=== PATIENT | female | born 1990 | race Caucasian/White ===

== ENCOUNTER 2018-03-11 07:59 | Inpatient (IN) ==
[2018-03-11 07:24] LABS: Bilirubin,Urine Negative (Negative); Blood,Urine Moderate (Negative); Clarity,Urine Slightly Cloudy (Clear); Color,Urine Yellow (Yellow); Glucose,Urine (UA) Normal (Normal); Ketones,Urine Negative (Negative); Leukocyte Esterase,Urine Small (Negative); Nitrite,Urine Negative (Negative); PH,Urine 6.5 pH Units (5.0-8.0); Protein,Urine Negative (Neg-Trace); Specific Gravity,Urine 1.025 (1.010-1.025); Urobilinogen,Urine Normal (Normal)
[2018-03-11 07:42] LABS: Bacteria,Urine Many per hpf (None-Few); RBC,Urine 0-3 per hpf (0-3); Squamous Epithelial Cell,Urine Moderate per lpf (None-Few)
[2018-03-11 07:44] LABS: Amphetamine Screen,Urine Negative ng/mL (Cutoff=1000); Barbiturate Screen,Urine Negative ng/mL (Cutoff=200); Benzodiazepines Screen,Urine Negative ng/mL (Cutoff=200); Cannabinoid Screen,Urine Negative ng/mL (Cutoff = 50); Cocaine Screen,Urine Negative ng/mL (Cutoff= 300); Opiate Screen,Urine Negative ng/mL (Cutoff=300); Phencyclidine Screen,Urine Negative ng/mL (Cutoff=25)
[~2018-03-11 07:59] MED LIST: Famotidine 20 MG/2 ML VIAL IVP PRN; Naloxone 0.4 MG/ML INJ IVP PRN; Penicillin G Potassium 5,000,000 UNIT in 0.9 % Sodium Chloride Mini Bag 100 ML IVPB ONE; Ringers Solution, Lactated 1,000 ML ONE
[2018-03-11] MEDS ORDERED: Penicillin G Potassium 2,500,000 UNIT in 0.9 % Sodium Chloride 100 ML IVPB SCH (08:00)
[2018-03-11] MEDS ORDERED: *HR* Nalbuphine 10 MG/ML AMPUL IV PRN (08:05)
[2018-03-11 08:12] LABS: Basophils # 0.2 K/mcL (0.0-0.2); Basophils % 0.9 %; Eosinophils # 0.1 K/mcL (0.0-0.6); Eosinophils % 0.4 %; Hemoglobin 13.2 g/dL (11.5-15.4); Immature Granulocytes % 3.9 % (0-4); Lymphocytes # 1.9 K/mcL (0.6-4.6); Lymphocytes % 10.8 %; Mean Corpuscular HGB Conc 35.7 g/dL (31.6-35.5); Mean Corpuscular Hemoglobin 31.6 pg (28.0-33.3); Mean Corpuscular Volume 88.5 fL (83.0-100.0); Mean Platelet Volume 11.8 fL (9.4-12.4); Monocytes % 5.4 %; Neutrophils # 14.1 K/mcL (1.6-8.9); Platelet Count 161 K/mcL (140-400); Red Blood Count 4.18 M/mcL (3.82-4.97); Red Cell Distribution Width 12.5 % (11.5-14.5); Segmented Neutrophils % 78.6 %
[2018-03-11] MEDS ORDERED: Lidocaine -MPF 1% 5 ML AMPUL ONE ×2 (08:34→08:53)
[2018-03-11] MEDS ORDERED: Epidural Premix (fent/bupiv) 110 ML EP ONE (08:35)
--- NOTE | 2018-03-11 08:59 | OB/GYN History & Physical ---
Date of Encounter: 03/11/18 Time of Encounter: 08:56 Assessment and Plan (1) 37 weeks gestation of Current visit: Yes Status: Acute History of Present Illness Chief complaint: labor HPI: Ms. Bay is a 27 year old female who presents to labor and delivery in labor. On presentation patient is 4 cm. She is doing well. She is having no complaints of any kind today. She is currently 37 weeks and 4 days. She has a due date of March 28. She has no drug allergies. She is currently on no medications. She has no chronic medical conditions. Surgical history is negative. She has no history of abnormal Pap smears, STDs or pelvic infections. She has no history of abnormal breast findings. Socially she denies tobacco, alcohol, illicit drug use. Obstetric history significant for one term vaginal delivery uncomplicated. Group B strep is positive. Past Med Surg Social Fam HX - Past Medical History Medical history: no medical history Psychiatric history: no psych history - Past Surgical History Additional surgical history: oral surgery - Social History Smoking Status: Never smoker Smokeless Tobacco Status: No Alcohol use: none Drug use: none - Family History Mother Adopted: [place]: Masha Dailey Age: 55 Family Member Ethnicity: Non- Living Status: Still Living Hx Family Cardiac Disorders: Yes (HTN) Hx Family Respiratory Disorders: No Hx Family Cancer: Yes (breast cancer) Hx Family GI Disorders: Yes (illeostomy/reversal) Hx Family Genitourinary Disorders: No Hx Family Endocrine Disorder: Yes (diabetic type II) Hx Family Musculoskeletal Disorders: No Hx Family Neuromuscular Disorders: No Hx Family Neurologic Disorders: No Hx Family HEENT Disorders: No Hx Family Autoimmune Disorders: No Hx Family Reproductive Disorders: No Hx Family Psychosocial Disorders: No Hx Family Medical Disorders: No Obstetrical History - Pregnancies : 2 Para: 1 Livin - History/Complications History/Complications: Vaginal delivery 6 lbs. 7 oz. female uncomplicated Medications and Allergies Fexofenadine/Pseudoephedrine [Nicolasa-D 24 Hour Tablet] 1 each PO DAILY [History] Ondansetron HCl [Zofran] 4 mg PO DAILY 03/11/18 [History] Review of System OB All systems PM: reviewed and no additional remarkable complaints except as stated Exam - Constitutional Constitutional: well developed, well nourished, no acute distress, average body habitus - HEENT HEENT: PERRL - Neck Neck exam: full ROM - Lungs Respiratory exam: CTAB - Cardiovascular Cardiovascular exam: RRR - Abdomen Abdomen: Present: bowel sounds normal, gravid, non tender - Extremities Extremities exam: full ROM - Cervix Dilation: 4 Effacement: 50 Station: -2 - Uterus Uterus exam: Present: normal size Results Result Diagrams: 03/11/18 08:00 Abnormal lab results WBC 18.0 K/mcL (4.3-11.1) H 03/11/18 08:00 MCHC 35.7 g/dL (31.6-35.5) H 03/11/18 08:00 Neutrophils # 14.1 K/mcL (1.6-8.9) H 03/11/18 08:00 Urine Clarity Slightly Cloudy (Clear) A 03/11/18 07:20 Urine Blood Moderate (Negative) H 03/11/18 07:20 Ur Leukocyte Esterase Small (Negative) H 03/11/18 07:20 Urine Microscopic WBC 5-15 per hpf (0-3) H 03/11/18 07:20 Ur Squamous Epith Cells Moderate per lpf (None-Few) H 03/11/18 07:20 Urine Bacteria Many per hpf (None-Few) H 03/11/18 07:20 Ur Culture Indicated? YES (NO) A 03/11/18 07:20 All other labs normal. - VTE Reasons for not Prescribing Prophylaxis: Treatment not Indicated - Low risk for VTE
--- NOTE | 2018-03-11 09:23 | Anesthesia Evaluation PreOp ---
Date of Encounter: 03/11/18 Time of Encounter: 09:22 - Past History Planned Operation: ALEC Cardiac History: Denies any Significant Hx Pulmonary History: Denies Any Significant HX BEVERAGE SPECIALIST History: Denies Any Significant HX Other Medical History: Denies Any Significant HX Anesthesia History: No Prior Anesthetic Complications, Past Anesthesia : Yes Alcohol Use: none Drug use: none Medications and Allergies Fexofenadine/Pseudoephedrine [Nicolasa-D 24 Hour Tablet] 1 each PO DAILY [History] Ondansetron HCl [Zofran] 4 mg PO DAILY 03/11/18 [History] 3 Allergy/AdvReac Type Severity Reaction Status Date / Time No Known Allergies Allergy Verified 03/11/18 09:10 - Meds/Allergy Pre-op Review Medications Reviewed: Yes Allergies Reviewed: Yes Beta Blockers on Current Med List: No Anesthesia Results - Labs 03/11/18 08:00 Anesthesia Exam O2 Sat Height 1.75 m Weight 70.5 kg NPO (# of Hours): 4 Pain Scale: 8 Pain Scale Used: Numeric (1 - 10) - HEENT Pupil (Motor): Pupils equal Mallampati: II Teeth: Normal Oral Opening: Greater than 3 - BEVERAGE SPECIALIST LOC: Oriented BEVERAGE SPECIALIST Motor: Normal RUE, Normal LUE, Normal RLE, Normal LLE, Normal Face BEVERAGE SPECIALIST Sensory: Normal: RUE, LUE, RLE, LLE, Face - Cardiac Rhythm: Regular Murmur: None JVD: No Carotid Bruit: No - Pulmonary Breath Sounds: bilateral Clear Respiratory Effort: Symmetrical Anesthesia Assess/Plan ASA Score: 2 Modified Benjamín Scale for Level of Consciousness: Cooperative, oriented, and tranquil Anesthetic Plan: General (plan b), Regional (plan a) Autologous Blood: Yes Monitoring Plan: Standard Monitors Recovery Plan: PACU
[2018-03-11] MEDS ORDERED: EPHEDrine 50 MG/ML VIAL IVP PRN (09:25)
--- NOTE | 2018-03-11 09:25 | Anesthesia Procedures ---
Date of Encounter: 03/11/18 Time of Encounter: 09:23 Procedures: Anesthesia - Epidural/Spinal Patient ID/Chart reviewed: Yes Patient examined: Yes OB Eval: Gestational age: 37.4 OB Eval: : 2 OB Eval: Hx Para: 1 OB Eval: Dilated at (cm): 5 OB Eval: Contractions: Non-stressed pattern Consent Obtained: Yes Supplemental Oxygen: None/Room Air Site Prep: Aseptic Technique, Sterile prep and drape, Povidone-Iodine 1% Patient position: upright Local Anesthetic: Lidocaine 1% Amount of Local Anesthetic used: 3 Touhy Needle Gauge: 18 Touhy Needle Depth (cm): 6 Catheter Depth at Skin (cm): 20 Test Dose (1.5% Lido + Epi): Volume given (mls): 5 Test Dose Result: Negative Loading Dose: Other: 10mls of epidural pharm bag premix solution Loading Dose Administered: Thru Catheter Infusion Med: 0.125% Bupivacaine w/ 2 mcg/ml Fentanyl Infusion Rate (mls/hr): 16 ([id number] [id number]) Catheter Secured in Place: Tegaderm, Tape Interspace Used: L3-L4 Loss of Resistance (MELECIO): Yes Blood: Yes (on first pass. none on second attempt) CSF: No Paresthesia: No Procedure: pt tolerated procedure well. no complications. vss. fhr stable. first attempt: blood in cath. removed and placed one level higher. no complications.
[2018-03-11] MEDS ORDERED: Epidural Premix (fent/bupiv) 110 ML EP SCH (09:30)
[2018-03-11] MEDS: Acetaminophen 325 MG TABLET PO PRN ×2 (10:44→11:50)
[2018-03-11] MEDS ORDERED: Ondansetron 4 MG/2 ML VIAL IM ONE (11:29)
[2018-03-11] MEDS ORDERED: Ringers Solution, Lactated 1,000 ML ONE (12:03)
--- NOTE | 2018-03-11 14:42 | OB/GYN Procedure Note ---
Delivery - Delivery Date: 03/11/18 Provider: Jere Cabezas Intrapartum events: none Delivery induction: none Delivery augmentation: rupture of membranes Delivery monitor: external FHT, external uterine Anesthesia: epidural Quantitated Blood Loss: 100 - (s) Infant A Delivery Date: 03/11/18 Infant Delivery Time: 14:30 Presentation: vertex Position: OA Route of delivery: Gender: Male Viability: Viable Pounds: 6 Ounces: 3 Weight Gram: 2.815 kg at 1 minute: 9 at 5 mins: 9 Shoulder Dystocia: not encountered Placenta: spontaneous - Repair Episiotomy: none Laceration Description: None - Complications Delivery complications: none - Disposition Mom disposition: stable in LDR [place] disposition: stable in LDR - Comments Comments: Patient progressed to complete and pushing and had a spontaneous vaginal delivery of a male infant over an intact perineum. 's that was the perineum easily. The rest the was then delivered with 1 push. Infant cried immediately upon delivery. Cord was clamped cut after 60 seconds. The infant was then passed to nursing in attendance. Cord bloods obtained. Placenta was then delivered spontaneously intact. There are no cervical, vaginal, periurethral, or perineal lacerations were noted. Patient delivered a male infant weight 6 lbs. 3 oz., Apgars 9 at 1 minute 9 at 5 minutes. Estimated blood loss 100 mL.
[2018-03-11] MEDS ORDERED: Measles/Mumps/Rubella Vacc 0.5 ML VIAL SQ PRN (17:26)
[2018-03-11] MEDS ORDERED: Acetaminophen 325 MG TABLET PO PRN (17:26)
[2018-03-11] MEDS ORDERED: Oxytocin 20 units/ LR 1000 mL 20 UNIT/1,000 ML BAG IVC SCH (17:26)
[2018-03-12] MEDS: Ibuprofen 600 MG TABLET PO PRN ×2 (05:20→12:20)
[2018-03-12 05:54] LABS: Basophils # 0.1 K/mcL (0.0-0.2); Basophils % 0.4 %; Eosinophils # 0.1 K/mcL (0.0-0.6); Eosinophils % 0.7 %; Hematocrit 36.9 % (35.3-44.9); Immature Granulocytes % 2.7 % (0-4); Lymphocytes % 10.8 %; Mean Corpuscular HGB Conc 35.2 g/dL (31.6-35.5); Mean Corpuscular Hemoglobin 32.4 pg (28.0-33.3); Mean Platelet Volume 11.3 fL (9.4-12.4); Monocytes % 5.5 %; Neutrophils # 14.6 K/mcL (1.6-8.9); Platelet Count 139 K/mcL (140-400); Red Blood Count 4.01 M/mcL (3.82-4.97); Red Cell Distribution Width 12.4 % (11.5-14.5); Segmented Neutrophils % 79.9 %
--- NOTE | 2018-03-12 07:00 | OB/GYN Progress Note ---
Date of Encounter: 03/12/18 Time of Encounter: 06:58 - Assessment and Plan (1) 37 weeks gestation of Current Visit: Yes Status: Acute (2) (spontaneous vaginal delivery) Current Visit: Yes Status: Acute (3) Term of male Current Visit: Yes Status: Acute Subjective - Subjective Principal diagnosis: s/p Interval history: 27-year-old female presented to labor and delivery in labor. She progressed to complete and pushing and had a spontaneous vaginal delivery of a male infant over an intact perineum. patient did well. No complaints of any kind. Minimal bleeding. Baby doing wonderfully. Patient would like to go home 24 hours. Patient reports: appetite normal, voiding normally, pain well controlled, ambulating normally [place]: doing well Objective - Latest Vital Signs Latest vital signs: Vital Signs Temp Pulse Resp BP Pulse Ox 03/11/18 20:13 98.0 F 65 16 109/70 100 03/11/18 18:50 98.6 F 74 16 119/76 99 03/11/18 17:30 98.0 F 83 16 118/77 100 03/11/18 16:30 97.9 F 65 16 109/71 100 03/11/18 16:29 97.9 F 64 18 107/61 100 03/11/18 16:06 98.0 F 63 16 117/70 100 Intake and Output 03/11/18 03/11/18 03/12/18 15:59 23:59 07:59 Intake Total 600 / 600 Output Total 1400 / 1400 300 / 300 Balance -1400 / -1400 300 / 300 Intake: Oral 600 / 600 Output: Urine 1400 / 1400 300 / 300 Other: Stool Characteristics Normal for Patient Weight 70.5 kg 69.5 kg 67.449 kg Patient Weight 03/12/18 23:59 Weight 67.449 kg - Exam Extremities: Present: normal Abdomen: Present: normal appearance, soft Uterus: Present: normal, firm Uterus Position: 3 Fingers Below Umbilicus - Labs Labs: Laboratory Results - last 24 hr 03/11/18 03/11/18 03/11/18 07:20 07:20 08:00 WBC 18.0 H RBC 4.18 Hgb 13.2 Hct 37.0 MCV 88.5 MCH 31.6 MCHC 35.7 H RDW 12.5 Plt Count 161 MPV 11.8 Immature Gran % 3.9 Seg Neutrophils % 78.6 Lymphocytes % 10.8 Monocytes % 5.4 Eosinophils % 0.4 Basophils % 0.9 Neutrophils # 14.1 H Lymphocytes # 1.9 Monocytes # 1.0 Eosinophils # 0.1 Basophils # 0.2 Urine Color Yellow Urine Clarity Slightly Cloudy A Urine pH 6.5 Ur Specific [place] 1.025 Urine Protein Negative Urine Glucose (UA) Normal Urine Ketones Negative Urine Blood Moderate H Urine Nitrite Negative Urine Bilirubin Negative Urine Urobilinogen Normal Ur Leukocyte Esterase Small H Urine Microscopic RBC 0-3 Urine Microscopic WBC 5-15 H Ur Squamous Epith Cells Moderate H Urine Bacteria Many H Ur Culture Indicated? YES A Urine Opiates Screen Negative Ur Barbiturates Screen Negative Ur Phencyclidine Scrn Negative Ur Amphetamines Screen Negative U Benzodiazepines Scrn Negative Urine Cocaine Screen Negative U Marijuana (THC) Screen Negative Ur Drug Screen Interp See Below 03/12/18 05:25 WBC 18.2 H RBC 4.01 Hgb 13.0 Hct 36.9 MCV 92.0 MCH 32.4 MCHC 35.2 RDW 12.4 Plt Count 139 L MPV 11.3 Immature Gran % 2.7 Seg Neutrophils % 79.9 Lymphocytes % 10.8 Monocytes % 5.5 Eosinophils % 0.7 Basophils % 0.4 Neutrophils # 14.6 H Lymphocytes # 2.0 Monocytes # 1.0 Eosinophils # 0.1 Basophils # 0.1 Urine Color Urine Clarity Urine pH Ur Specific [place] Urine Protein Urine Glucose (UA) Urine Ketones Urine Blood Urine Nitrite Urine Bilirubin Urine Urobilinogen Ur Leukocyte Esterase Urine Microscopic RBC Urine Microscopic WBC Ur Squamous Epith Cells Urine Bacteria Ur Culture Indicated? Urine Opiates Screen Ur Barbiturates Screen Ur Phencyclidine Scrn Ur Amphetamines Screen U Benzodiazepines Scrn Urine Cocaine Screen U Marijuana (THC) Screen Ur Drug Screen Interp
--- NOTE | 2018-03-12 07:02 | Discharge Summary ---
Date of Encounter: 03/12/18 Time of Encounter: 07:04 - Discharge Diagnosis (1) 37 weeks gestation of Priority: Secondary Status: Acute (2) (spontaneous vaginal delivery) Priority: Primary Status: Acute (3) Term of male Priority: Secondary Status: Acute - Discharge Medications Home Medications: Fexofenadine/Pseudoephedrine [Nicolasa-D 24 Hour Tablet] 1 each PO DAILY [History] Ondansetron HCl [Zofran] 4 mg PO DAILY 03/11/18 [History] Allergies/Adverse Reactions: 3 Allergy/AdvReac Type Severity Reaction Status Date / Time No Known Allergies Allergy Verified 03/11/18 09:10 Data Procedures and tests throughout hospitalization: Laboratory Tests 03/11/18 03/11/18 03/11/18 07:20 07:20 08:00 WBC 18.0 H RBC 4.18 Hgb 13.2 Hct 37.0 MCV 88.5 MCH 31.6 MCHC 35.7 H RDW 12.5 Plt Count 161 MPV 11.8 Immature Gran % 3.9 Seg Neutrophils % 78.6 Lymphocytes % 10.8 Monocytes % 5.4 Eosinophils % 0.4 Basophils % 0.9 Neutrophils # 14.1 H Lymphocytes # 1.9 Monocytes # 1.0 Eosinophils # 0.1 Basophils # 0.2 Urine Color Yellow Urine Clarity Slightly Cloudy A Urine pH 6.5 Ur Specific [place] 1.025 Urine Protein Negative Urine Glucose (UA) Normal Urine Ketones Negative Urine Blood Moderate H Urine Nitrite Negative Urine Bilirubin Negative Urine Urobilinogen Normal Ur Leukocyte Esterase Small H Urine Microscopic RBC 0-3 Urine Microscopic WBC 5-15 H Ur Squamous Epith Cells Moderate H Urine Bacteria Many H Ur Culture Indicated? YES A Urine Opiates Screen Negative Ur Barbiturates Screen Negative Ur Phencyclidine Scrn Negative Ur Amphetamines Screen Negative U Benzodiazepines Scrn Negative Urine Cocaine Screen Negative U Marijuana (THC) Screen Negative Ur Drug Screen Interp See Below 03/12/18 05:25 WBC 18.2 H RBC 4.01 Hgb 13.0 Hct 36.9 MCV 92.0 MCH 32.4 MCHC 35.2 RDW 12.4 Plt Count 139 L MPV 11.3 Immature Gran % 2.7 Seg Neutrophils % 79.9 Lymphocytes % 10.8 Monocytes % 5.5 Eosinophils % 0.7 Basophils % 0.4 Neutrophils # 14.6 H Lymphocytes # 2.0 Monocytes # 1.0 Eosinophils # 0.1 Basophils # 0.1 Urine Color Urine Clarity Urine pH Ur Specific [place] Urine Protein Urine Glucose (UA) Urine Ketones Urine Blood Urine Nitrite Urine Bilirubin Urine Urobilinogen Ur Leukocyte Esterase Urine Microscopic RBC Urine Microscopic WBC Ur Squamous Epith Cells Urine Bacteria Ur Culture Indicated? Urine Opiates Screen Ur Barbiturates Screen Ur Phencyclidine Scrn Ur Amphetamines Screen U Benzodiazepines Scrn Urine Cocaine Screen U Marijuana (THC) Screen Ur Drug Screen Interp Labs on day of discharge: Labs from last 24 hours 03/12/18 03/11/18 03/11/18 05:25 08:00 07:20 WBC 18.2 H 18.0 H RBC 4.01 4.18 Hgb 13.0 13.2 Hct 36.9 37.0 MCV 92.0 88.5 MCH 32.4 31.6 MCHC 35.2 35.7 H RDW 12.4 12.5 Plt Count 139 L 161 MPV 11.3 11.8 Immature Gran % 2.7 3.9 Seg Neutrophils % 79.9 78.6 Lymphocytes % 10.8 10.8 Monocytes % 5.5 5.4 Eosinophils % 0.7 0.4 Basophils % 0.4 0.9 Neutrophils # 14.6 H 14.1 H Lymphocytes # 2.0 1.9 Monocytes # 1.0 1.0 Eosinophils # 0.1 0.1 Basophils # 0.1 0.2 Urine Color Yellow Urine Clarity Slightly Cloudy A Urine pH 6.5 Ur Specific [place] 1.025 Urine Protein Negative Urine Glucose (UA) Normal Urine Ketones Negative Urine Blood Moderate H Urine Nitrite Negative Urine Bilirubin Negative Urine Urobilinogen Normal Ur Leukocyte Esterase Small H Urine Microscopic RBC 0-3 Urine Microscopic WBC 5-15 H Ur Squamous Epith Cells Moderate H Urine Bacteria Many H Ur Culture Indicated? YES A Urine Opiates Screen Ur Barbiturates Screen Ur Phencyclidine Scrn Ur Amphetamines Screen U Benzodiazepines Scrn Urine Cocaine Screen U Marijuana (THC) Screen Ur Drug Screen Interp 03/11/18 07:20 WBC RBC Hgb Hct MCV MCH MCHC RDW Plt Count MPV Immature Gran % Seg Neutrophils % Lymphocytes % Monocytes % Eosinophils % Basophils % Neutrophils # Lymphocytes # Monocytes # Eosinophils # Basophils # Urine Color Urine Clarity Urine pH Ur Specific [place] Urine Protein Urine Glucose (UA) Urine Ketones Urine Blood Urine Nitrite Urine Bilirubin Urine Urobilinogen Ur Leukocyte Esterase Urine Microscopic RBC Urine Microscopic WBC Ur Squamous Epith Cells Urine Bacteria Ur Culture Indicated? Urine Opiates Screen Negative Ur Barbiturates Screen Negative Ur Phencyclidine Scrn Negative Ur Amphetamines Screen Negative U Benzodiazepines Scrn Negative Urine Cocaine Screen Negative U Marijuana (THC) Screen Negative Ur Drug Screen Interp See Below Date of admission: 03/11/18 08:01 Consults: 03/11/18 17:26 Consult to Tentering Machine Feeder [CONS] Routine Comment: Vaginal delivery, consult needed Discharging clinician: Jere Cabezas - Patient Status Disposition: Home, Self-Care Condition: Good Functional capacity at discharge: independent ambulation Overall status at discharge: patient is back to baseline - Discharge Instructions Additional Instructions: Call for appointment in 4 weeks at office - Diet and Activity Activity: increase activity as tolerated Diet: advance to your usual diet Hospital Course [employer] SUPER[employer] Time Attestation: Total time spent providing and/or coordinating discharge services: Exam - Constitutional Vitals: Temp Pulse Resp BP Pulse Ox 98.0 F 65 16 109/70 100 03/11/18 20:13 03/11/18 20:13 03/11/18 20:13 03/11/18 20:13 03/11/18 20:13 General appearance IM: cooperative, A&O X 3, pleasant - Respiratory Respiratory exam: Present: CTAB - Cardiovascular Cardiovascular exam IM: Present: RRR - Uterine Tone: Firm Uterus Position: 3 Fingers Below Umbilicus - Extremities Exam Extremities exam IM: Present: full ROM - Neurological Exam Neurological exam: normal gait, strengths equal and symetr throughout - VTE Reasons for not Prescribing Prophylaxis: Treatment not Indicated - Low risk for VTE
[2018-03-12 08:09] VITALS: BP 104/69
[2018-03-12] MEDS ORDERED: Loratadine/Pseudophed (12 HR) 1 EACH TABLET PO SCH (09:00)
[2018-03-12] MEDS ORDERED: Prenatal Vit/FA 1 EACH TABLET PO SCH (09:00)
== END 2018-03-12 16:50 | disposition home or self-care (01) | DRG 775 ==
LOC: 1NENULAB → 1NENUOBS 16:23
PROVIDERS: ADMIT Obstetrics & Gynecology; ATTEND Obstetrics & Gynecology